=== PATIENT | male | born 1960 | race Caucasian/White ===

== ENCOUNTER 2024-06-03 11:03 | Inpatient (IN) | payer MEDICARE, SELFPAY ==
--- NOTE | ~2024-06-03 | XR_ITS ---
EXAMINATION: XR CHEST CLINICAL INFORMATION: cough COMPARISON: None available. TECHNIQUE: 2 views of the chest were obtained. FINDINGS: No significant abnormality is noted involving the heart, lungs, mediastinum, bony thorax or soft tissues. XR/XR chest 2V IMPRESSION: Unremarkable examination. Electronically signed by: Neo Fischer MD 06/03/2024 12:42 PM [facility]
[2024-06-03 11:09] VITALS: BP 180/110; PULSE 75; O2SAT 98
[2024-06-03 11:51] VITALS: BP 162/96; PULSE 71; RESP 20; TEMP 36.7; O2SAT 95; BMI 36.6
--- NOTE | 2024-06-03 11:52 | ED_ITS ---
HPI - General Adult General Chief complaint: General Medical Stated complaint: FEELS ILL,COUGHING SPUTUM,SOB 98% RA X5D PER EMS Time Seen by Provider: 06/03/24 13:42 Source: patient Mode of arrival: ambulatory Limitations: no limitations History of Present Illness ED Provider: LIAM MAXWELL PA-C HPI narrative: 63 year old male with pmhx significant for hypertension presents to the ED today for evaluation of cough productive of yellow sputum and body aches x4 days. He has been taking [id number] cough medicine without improvement. Denies any known history of lung disease/asthma. Remote history of tobacco use. No recent travel/ long car rides. He tells me that he currently resides with a disabled female who he is caring for. He becomes tearful and expresses anxiety surrounding his current living situation. He states that this individual does not respect his boundaries that he has clearly set within the home. He has been trying to care for himself while he has been ill over the last week and he has been unable to do so. He feels like he has no where to go. He endorses passive SI stating I do not want to live anymore . He does not have a specific plan on how he would do so. Denies HI. He has no history of anxiety or depression. He is requesting something for anxiety He also tells me that his hypertension has been uncontrolled over the past 8 months. He reports switching to a new insurance and has been unable to establish care with a primary care provider. The last time he took his blood pressure medication was approximately 8 months ago. He states that he was taking 12.5 mg of hydrochlorothiazide daily. Admits that his blood pressures have been through the roof recently which he attributes to his current situation. He denies any EtOH consumption or illicit substance use. Related Data Previous Rx's ?Medication ?Instructions ?Recorded azithromycin 250 mg tablet See Rx Instructions PO .COMPLEX #6 06/03/24 tabs guaifenesin 200 mg tablet 200 mg PO TID PRN cough #10 tabs 06/03/24 hydrochlorothiazide 12.5 mg tablet 12.5 mg PO DAILY 30 days #30 tabs 06/03/24 Allergies Allergy/AdvReac Type Severity Reaction Status Date / Time lisinopril Allergy Unknown Verified 06/03/24 11:53 Review of Systems 2 Review of Systems: Constitutional: No fever, chills, fatigue, night sweats, weight changes ENT/Mouth: No ear pain, hearing loss, nasal congestion, sinus pain, rhinorrhea, sore throat Eyes: No eye pain, swelling, redness, vision changes, discharge Cardio: No chest pain, palpitations, ANDRADE, orthopnea, peripheral edema Pulm: No SOB, cough, sputum, wheezing, dyspnea, hemoptysis, +cough GI: No nausea, vomiting, hematemesis, abdominal pain, diarrhea, constipation, hematochezia, melena : No irregular bleeding, dysuria, frequency, urgency, hesitancy, hematuria, flank pain, urinary flow changes, urinary incontinence or retention MSK: No back pain, neck pain, joint pain, +myalgias Skin: No lesions, rashes Neuro: No weakness, numbness, paresthesias, LOC, dizziness, headache Psych: No panic, depression, SI/HI, AH/VH, +anxiety, +SI All other systems reviewed and are negative. [facility] Past Medical History Attestation statement: The following information was validated with the patient. Source: old records reviewed and nursing notes reviewed Social History Social History Alcohol intake: current Alcohol type: hard liquor Smoked in Last 30 Days: No Use of substances other than those prescribed or required for medical reasons: No Advance Directives: No Advance Directives Information Provided: Yes Do you have a plan to hurt others: No Plan Physical Exam ED Vital Signs: Vital Signs - 24 hr 06/03/24 17:47 06/03/24 22:29 06/04/24 00:41 Temperature 97.1 F 97.8 F Pulse Rate 58 73 85 Respiratory Rate 16 16 Blood Pressure 161/92 H 176/103 H 166/106 H Pulse Oximetry 96 96 Oxygen Delivery Method Room Air Room Air 06/04/24 03:03 06/04/24 10:29 Temperature 97.7 F Pulse Rate 84 73 Respiratory Rate 16 Blood Pressure 159/86 H 154/88 H Pulse Oximetry 92 Oxygen Delivery Method Room Air BMI result Body Mass Index 36.6 hypertensive, vitals otherwise wnl General: tearful Skin: Warm, dry, intact. No rashes or lesions. Head: Normocephalic, atraumatic. EENT: Hearing is intact b/l. Conjunctiva clear. PERRLA. EOM intact. Moist mucous membranes.? Neck: Supple without LAD Cardiac: Chest wall symmetric. RRR Lungs: Normal respiratory effort without accessory muscle use. CTA bilaterally. No rales, rhonchi, or wheezes.? Abdomen: Soft, non-tender, non-distended Back: No midline spinous or paraspinal tenderness. No step off deformity. Ext: Upper and lower extremities atraumatic, without tenderness, deformity, swelling or erythema. Full ROM throughout. Neuro: AOx3. Normal speech. Ambulating with steady gait. Psych: Appropriate mood and affect. Responds appropriately to questions. Course Course Course Narrative: RME, this is a rapid medical exam performed by Ramone Cortés please refer to primary provider for complete H&P- 63-year-old male presents for evaluation of cough, congestion, body aches. Reevaluation(s) Reevaluation #1: Patient tested negative for COVID, flu, RSV, strep throat. His chest x-ray does not demonstrate pneumonia or effusion. Patient's symptoms are consistent with a bronchitis. I have plans to prescribe him azithromycin and an antitussive. Regarding his elevated blood pressures, patient tells me that he was previously treated with hydrochlorothiazide 12.5 mg. His blood work is essentially unremarkable. Elevated liver enzymes of unknown significance. He does not complain of any abdominal pain, nausea or vomiting. He does not have an JIMMY. Plan to send 30 day script for HCTZ. Patient expressing passive SI in regards to his current home situation. Ativan provided for anxiety. I have also placed a consultation to care team for further discussion. Patient agreeable. placed in physician observation pending care team consultation. Reevaluation #2: 06/04/24 8:45 Am we are waiting for crisis eval for anxiety and passive Si,stble clinically Reevaluation #3: observation ended pt will be admited to psyc Unit Time: 12:58 Medications Administered Generic Name Dose Route Start Last Admin Trade Name Freq PRN Reason Stop Dose Admin Benzonatate 200 mg 06/04/24 05:49 06/04/24 06:25 Benzonatate 100 Mg Capsule PO 200 mg TID PRN Administration cough or congestion Discontinued Medications Generic Name Dose Route Start Last Admin Trade Name Freq PRN Reason Stop Dose Admin Amlodipine Besylate 5 mg 06/03/24 22:55 12/30/24 23:25 Amlodipine Besylate 5 Mg Tablet PO 06/03/24 22:56 5 mg ONCE ONE Administration Protocol Amlodipine Besylate 5 mg 06/04/24 01:54 06/04/24 01:57 Amlodipine Besylate 5 Mg Tablet PO 06/04/24 01:55 5 mg ONCE ONE Administration Protocol Benzonatate 200 mg 06/03/24 14:34 06/03/24 14:59 Benzonatate 100 Mg Capsule PO 06/03/24 14:35 200 mg ONCE ONE Administration Guaifenesin 1,200 mg 06/04/24 00:28 06/04/24 00:41 Guaifenesin La 600 Mg Tab.Er.12h PO 06/04/24 00:29 1,200 mg ONCE ONE Administration Lorazepam 0.5 mg 06/03/24 14:34 06/03/24 14:59 Lorazepam 0.5 Mg Tablet PO 06/03/24 14:35 0.5 mg ONCE ONE Administration Medical Decision Making Medical Decision Making [facility] Narrative: 63 year old male with pmhx significant for hypertension presents to the ED today for evaluation of cough productive of yellow sputum and body aches x4 days. Hypertensive to 162/96, vitals otherwise wnl. He is not hypoxic or febrile. He is tearful on exam, in no acute distress. His physical exam is overall benign. Differential diagnosis includes viral syndrome, bronchitis, pneumonia Plan for viral swabs, CXR, re-evaluation. Differential Diagnosis Differential Diagnoses: The differential diagnosis associated with the presentation includes as above. Admission/Observation Consideration of admission/observation: Escalation of care including admission/observation considered Lab Data [facility] Lab Attestation statement: I reviewed the patient's lab results. as above. 06/03/24 14:32 06/03/24 14:32 Labs: Lab Results 06/03/24 06/03/24 06/04/24 Range/Units 12:32 14:32 01:30 WBC 9.1 (4.8-10.8) X10*3/uL RBC 4.66 (4.60-5.80) X10*6/uL Hgb 14.5 (14.0-18.0) g/dl Hct 39.9 L (42.0-52.0) % MCV 85.6 (80.0-98.0) fL MCH 31.1 (27.0-33.0) pg MCHC 36.3 H (31.0-36.0) g/dl RDW 11.9 (11.0-16.0) % Plt Count 166 (160-400) X10*3/uL MPV 10.6 (9.4-12.4) fL Immature Gran % (Auto) 0.3 (0.0-0.4) % Neut % (Auto) 59.9 (45-73) % Lymph % (Auto) 26.2 (20-40) % Bee % (Auto) 7.4 (2-11) % Eos % (Auto) 5.2 H (0-4) % Baso % (Auto) 1.0 (0-2) % Lymph # (Auto) 2.4 (1.2-4.9) X10*3/uL Bee # (Auto) 0.7 (0.1-1.2) X10*3/uL Eos # (Auto) 0.5 H (0.0-0.4) X10*3/uL Baso # (Auto) 0.1 (0.0-0.2) X10*3/uL Abs Immat Gran (auto) 0.03 (0.00-0.03) X10*3/uL Absolute Neuts (auto) 5.5 (2.0-8.3) x10*3/uL Absolute Nucleated RBC 0.000 (0.0-0.012) X10*3/uL Nucleated RBC % (auto) 0.0 (0.0-0.2) /100WBC Sodium 137 (135-145) mmol/L Potassium 4.4 (3.3-5.1) mmol/L Chloride 106 (96-108) mmol/L Carbon Dioxide 24 (22-29) mmol/L Anion Gap 11 L (12-20) BUN 10 (9-16) mg/dL Creatinine 1.08 (0.5-1.4) mg/dL Estim Creat Clear Calc 94.6 Estimated GFR > 60 Random Glucose 310 H (60-115) mg/dL Calcium 9.3 (8.4-10.2) mg/dL Total Bilirubin 1.2 H (0.0-1.0) mg/dL AST 41 H (5-37) U/L ALT 69 H (0-40) U/L Alkaline Phosphatase 94 (39-117) U/L Total Protein 7.1 (6.5-8.0) g/dL Albumin 3.9 (3.5-5.0) g/dL Urine Color Yellow Urine Appearance Clear Urine pH 5.5 (5.0-9.0) Ur Specific [place] >= 1.030 H (1.005-1.025) Urine Protein 30 (1+) H (Neg-Trace) mg/dL Urine Glucose (UA) >=1000 H (Negative) mg/dL Urine Ketones Negative (Negative) mg/dL Urine Blood Negative (Negative) Urine Nitrite Negative (Negative) Ur Leukocyte Esterase Negative (Negative) Urine RBC 0-2 (0-2) /HPF Urine WBC 0-5 (0-5) /HPF Ur Squamous Epith Cells 0-2 (0-2) /HPF Urine Bacteria None Seen (None Seen) Hyaline Casts 0-2 (0-2) /LPF Urine Opiates Screen Not Detected (Not Detect) Ur Buprenorphine Scrn Not Detected (Not Detect) ng/mL Ur Oxycodone Screen Not Detected (Not Detect) ng/mL Urine Methadone Screen Not Detected (Not Detect) ng/mL Urine Fentanyl Screen Not Detected (Not Detect) Ur Barbiturates Screen Not Detected (Not Detect) Ur Phencyclidine Scrn Not Detected (Not Detect) Ur Amphetamines Screen Not Detected (Not Detect) U Benzodiazepines Scrn Not Detected (Not Detect) Urine Cocaine Screen Not Detected (Not Detect) U Marijuana (THC) Screen Not Detected (Not Detect) Ethyl Alcohol < 10 mg/dL Influenza Type A (PCR) NEGATIVE (Negative) Influenza Type B (PCR) NEGATIVE (Negative) RSV RNA Qual (PCR) NEGATIVE (Negative) SARS-CoV-2 RNA (RT-PCR) NEGATIVE (Negative) S. pyogenes GrpA DAVID Negative (Negative) Independent Interpretation I performed an independent interpretation of an: Plain X-Ray Interpretation: CXR without infiltrate or consolidation Radiology Impression Discussion of test interpretation with radiology: I have reviewed the radiologist's reading. Radiologist Impression: EXAMINATION: XR CHEST CLINICAL INFORMATION: cough COMPARISON: None available. TECHNIQUE: 2 views of the chest were obtained. FINDINGS: No significant abnormality is noted involving the heart, lungs, mediastinum, bony thorax or soft tissues. XR/XR chest 2V IMPRESSION: Unremarkable examination. Electronically signed by: Neo Fischer MD 06/03/2024 12:42 PM EST Prescription Management I considered prescription management with: Antibiotic (azithromycin) and Other (HCTZ) Chronic Conditions Patient?s care impacted by: Hypertension Social Determinants Patient?s care significantly limited by Social Determinants of Health including: Other Social Determinant of Health Critical Care Time Critical Care Time Critical Care Time: No Discharge Plan Discharge Clinical Impression: Bronchitis, Anxiety, Hypertension Patient Disposition: Admitted As Inpatient
[2024-06-03 13:05] LABS: IDNOW Serial# 58CA691E; Strep A Nucleic Acid Negative (Negative)
[2024-06-03 13:37] LABS: Influenza A PCR NEGATIVE (Negative); Influenza B PCR NEGATIVE (Negative); Resp Syncy Virus RNA Qual PCR NEGATIVE (Negative); SARS COV2 PCR INHOUSE NEGATIVE (Negative)
[2024-06-03 14:36] LABS: MANUAL DIFF FLAG NO
[2024-06-03 14:42] LABS: Basophils Absolute Auto 0.1 X10*3/uL (0.0-0.2); Eosinophils Absolute Auto 0.5 X10*3/uL (0.0-0.4); Eosinophils Percent Auto 5.2 % (0-4); Hematocrit 39.9 % (42.0-52.0); Hemoglobin 14.5 g/dl (14.0-18.0); Imm Gran Abs Auto 0.03 X10*3/uL (0.00-0.03); Imm Gran Pct Auto 0.3 % (0.0-0.4); Lymphocytes Absolute Auto 2.4 X10*3/uL (1.2-4.9); Lymphocytes Percent Auto 26.2 % (20-40); Mean Corpuscular HGB Conc 36.3 g/dl (31.0-36.0); Mean Corpuscular Hemoglobin 31.1 pg (27.0-33.0); Mean Corpuscular Volume 85.6 fL (80.0-98.0); Mean Platelet Volume 10.6 fL (9.4-12.4); Monocytes Absolute Auto 0.7 X10*3/uL (0.1-1.2); Monocytes Percent Auto 7.4 % (2-11); Neutrophils Absolute Auto 5.5 x10*3/uL (2.0-8.3); Neutrophils Percent Auto 59.9 % (45-73); Platelet Count 166 X10*3/uL (160-400); Red Blood Count 4.66 X10*6/uL (4.60-5.80); Red Cell Distribution Width 11.9 % (11.0-16.0); White Blood Count 9.1 X10*3/uL (4.8-10.8)
[2024-06-03 14:51] LABS: Alanine Aminotransferase 69 U/L (0-40); Albumin Level 3.9 g/dL (3.5-5.0); Alkaline Phosphatase 94 U/L (39-117); Anion Gap 11 (12-20); Aspartate Amino Transferase 41 U/L (5-37); Bilirubin Total 1.2 mg/dL (0.0-1.0); Blood Urea Nitrogen 10 mg/dL (9-16); Calcium 9.3 mg/dL (8.4-10.2); Carbon Dioxide 24 mmol/L (22-29); Chloride 106 mmol/L (96-108); Creatinine Clr Calc Pharmacy 94.6; Estimated Glomerular Filt Rate > 60; Glucose Random 310 mg/dL (60-115); Potassium 4.4 mmol/L (3.3-5.1); Sodium 137 mmol/L (135-145); Total Protein 7.1 g/dL (6.5-8.0)
[2024-06-03] MEDS: Benzonatate 100 MG CAPSULE 200 MG PO (14:59)
[2024-06-03] MEDS: LORazepam 0.5 MG TABLET PO (14:59)
[2024-06-03 17:47] VITALS: BP 161/92; PULSE 58; RESP 16; TEMP 36.2; O2SAT 96
[2024-06-03 22:29] VITALS: BP 176/103; PULSE 73; RESP 16; TEMP 36.6; O2SAT 96
[2024-06-03] MEDS: amLODIPine Besylate 5 MG TABLET PO (23:25)
[2024-06-03 23:53] LABS: Ethanol < 10 mg/dL
[2024-06-04] VITALS (8 sets, daily range): BP systolic 154–189; BP diastolic 79–106; PULSE 73–85; RESP 16; TEMP 36.5–36.8; O2SAT 92–99; BMI 36.6
[2024-06-04] MEDS: guaiFENesin LA 600 MG TAB.ER.12H 1200 MG PO (00:41)
[2024-06-04 01:39] LABS: Appearance Urine Clear; Color Urine Yellow; Glucose Urine UA >=1000 mg/dL (Negative); Leukocyte Esterase Urine Negative (Negative); Nitrite Urine Negative (Negative); PH 5.5 (5.0-9.0); Specific Gravity - Urine >= 1.030 (1.005-1.025); UMIC TRIGGER UACC YES; Urine Blood Negative (Negative); Urine Ketones Negative (Negative); Urine Protein 30 (1+) mg/dL (Neg-Trace)
[2024-06-04 01:41] LABS: Bacteria Urine None Seen (None Seen); Hyaline Casts Urine 0-2 /LPF (0-2); RBC Urine 0-2 /HPF (0-2); Squamous Epithelial Cell Urine 0-2 /HPF (0-2); WBC Urine 0-5 /HPF (0-5)
[2024-06-04 01:55] LABS: Amphetamine Screen Urine Not Detected (Not Detect); Barbiturates, Urine Not Detected (Not Detect); Benzodiazepines Screen Urine Not Detected (Not Detect); Buprenorphine Scr Not Detected (Not Detect); Cannabinoid Screen Urine Not Detected (Not Detect); Cocaine Screen Urine Not Detected (Not Detect); Fentanyl, urine Not Detected (Not Detect); Methadone Screen, Urine Not Detected (Not Detect); Opiate Screen Urine Not Detected (Not Detect); Oxycodone Screen Urine Not Detected (Not Detect); Phencyclidine Screen Urine Not Detected (Not Detect)
[2024-06-04] MEDS: amLODIPine Besylate 5 MG TABLET PO (01:57)
[2024-06-04] MEDS: Benzonatate 100 MG CAPSULE 200 MG PO (06:25)
--- NOTE | 2024-06-04 11:45 | MHC.CARE ---
Pt will be a bedsearch
--- NOTE | 2024-06-04 14:02 | ECG_ITS ---
Test Reason : PROLONGED QTC Blood Pressure : / mmHG Vent. Rate : 071 BPM Atrial Rate : 071 BPM P-R Int : 188 ms QRS Dur : 104 ms QT Int : 402 ms P-R-T Axes : 063 -10 056 degrees QTc Int : 436 ms Normal sinus rhythm Minimal voltage criteria for LVH, may be normal variant ( R in aVL ) Borderline ECG No previous ECGs available Referred By: Birgit August Electronically Signed By:AMY ESPINAL MD
--- NOTE | 2024-06-04 14:37 | PHA.MEDREC ---
Addendum entered by [place]o [place] 06/04/24 14:43: reviewed Original Note: Pharmacy Consult ? Medication Reconciliation Pharmacy has completed the medication reconciliation. Spoke with patient and he confirmed he is not taking any medications at home currently.
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
--- NOTE | 2024-06-04 17:12 | PC.NURSE ---
Per ED Nurse, pharmacy is to come talk to patient on M5 for his med reconciliation.
--- NOTE | 2024-06-04 19:04 | PC.NURSE ---
Pt with 2 high BPs since his arrival on the unit. Dr Patton made aware via tigertext.
[2024-06-04] MEDS: hydrOXYzine HCL 25 MG TABLET PO (21:02)
[2024-06-04 21:40] LABS: Alanine Aminotransferase 63 U/L (0-40); Albumin Level 4.2 g/dL (3.5-5.0); Alkaline Phosphatase 97 U/L (39-117); Anion Gap 15 (12-20); Aspartate Amino Transferase 34 U/L (5-37); Bilirubin Total 0.9 mg/dL (0.0-1.0); Blood Urea Nitrogen 15 mg/dL (9-16); Calcium 9.4 mg/dL (8.4-10.2); Carbon Dioxide 23 mmol/L (22-29); Chloride 102 mmol/L (96-108); Creatinine Clr Calc Pharmacy 92.8; Estimated Glomerular Filt Rate > 60; Glucose Random 331 mg/dL (60-115); Potassium 4.4 mmol/L (3.3-5.1); Sodium 136 mmol/L (135-145); Total Protein 7.5 g/dL (6.5-8.0)
[2024-06-05] MEDS: guaiFENesin LA 600 MG TAB.ER.12H PO ×3 (00:57→21:04)
[2024-06-05 07:30] LABS: Estimated Average Glucose 246 mg/dL; Hemoglobin A1C 323.0056 umol/L; Hemoglobin A1c % 10.2 % (<6.0); Total Hemoglobin (HGBA1C) 3661.4293 umol/L
[2024-06-05 07:33] LABS: Cholesterol 194 mg/dL (<200); HDL Cholesterol 43 mg/dL (>40); LDL Cholesterol Calculated 126 mg/dL (<100); Triglycerides 128 mg/dL (<150)
[2024-06-05 07:56] VITALS: BP 156/98; PULSE 74; RESP 16; TEMP 36.4; O2SAT 96
[2024-06-05] MEDS: hydroCHLOROthiazide 12.5 MG TABLET PO ×2 (08:34→12:20)
[2024-06-05] MEDS: Benzonatate 100 MG CAPSULE 200 MG PO ×2 (09:05→21:04)
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
[2024-06-05] MEDS: Escitalopram Oxalate 5 MG TABLET PO (11:52)
[2024-06-05 12:20] VITALS: BP 148/72
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
[2024-06-05 14:41] VITALS: BP 132/76
[2024-06-05] MEDS: SITagliptin Phosphate 50 MG TABLET PO (14:41)
[2024-06-05] MEDS: Losartan Potassium 50 MG TABLET PO (14:41)
[2024-06-05 16:50] LABS: Glucose, Whole Blood 403 mg/dL (60-115)
--- NOTE | 2024-06-05 17:12 | PC.NURSE ---
contacted Alyce So NP and Mary DOMÍNGUEZ via tiger text for pt POC 403. pt has no insulin coverage. Mary said he will order. Awaiting orders.
[2024-06-05] MEDS: metFORMIN HCl 1,000 MG TABLET 1000 MG PO (17:37)
[2024-06-05] MEDS: Insulin Lispro 100 UNIT/ML 3 ML VIAL SUBCUT ×2 (17:44→21:44)
[2024-06-05 20:00] VITALS: BP 143/93; PULSE 85; RESP 16; TEMP 36.6; O2SAT 94
[2024-06-05 21:22] LABS: Glucose, Whole Blood 236 mg/dL (60-115)
[2024-06-06 07:46] LABS: Glucose, Whole Blood 264 mg/dL (60-115)
[2024-06-06 08:00] VITALS: BP 140/82; PULSE 65; RESP 16; TEMP 36.6; O2SAT 97
[2024-06-06] MEDS: Losartan Potassium 50 MG TABLET PO (08:41)
[2024-06-06] MEDS: SITagliptin Phosphate 50 MG TABLET PO (08:41)
[2024-06-06] MEDS: Insulin Lispro 100 UNIT/ML 3 ML VIAL SUBCUT ×4 (08:41→22:26)
[2024-06-06] MEDS: hydroCHLOROthiazide 25 MG TABLET PO (08:42)
[2024-06-06] MEDS: Escitalopram Oxalate 5 MG TABLET PO (08:42)
[2024-06-06] MEDS: metFORMIN HCl 1,000 MG TABLET 1000 MG PO ×2 (08:42→17:38)
[2024-06-06] MEDS: Acetaminophen 325 MG TABLET 650 MG PO (08:48)
[2024-06-06] MEDS: Benzonatate 100 MG CAPSULE 200 MG PO ×2 (08:49→22:25)
[2024-06-06] MEDS: guaiFENesin LA 600 MG TAB.ER.12H PO (08:49)
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
[2024-06-06 12:35] LABS: Glucose, Whole Blood 353 mg/dL (60-115)
[2024-06-06 13:03] VITALS: BP 140/84; PULSE 78; RESP 18; TEMP 36.9; O2SAT 95
[2024-06-06 16:54] LABS: Glucose, Whole Blood 175 mg/dL (60-115)
[2024-06-06 20:00] VITALS: BP 171/101; PULSE 70; RESP 16; TEMP 36.7; O2SAT 95
[2024-06-06 21:18] LABS: Glucose, Whole Blood 239 mg/dL (60-115)
[2024-06-06] MEDS: Magnesium Hydrox/Alum Hydrox 30 ML ORAL.SUSP PO (23:36)
[2024-06-07] MEDS: traZODone HCL 50 MG TABLET PO ×2 (02:06→20:48)
[2024-06-07] MEDS: hydrOXYzine HCL 25 MG TABLET PO ×2 (02:06→20:48)
[2024-06-07 08:00] VITALS: BP 113/66; PULSE 93; RESP 16; TEMP 36.9; O2SAT 95
[2024-06-07 08:28] LABS: Glucose, Whole Blood 228 mg/dL (60-115)
[2024-06-07] MEDS: SITagliptin Phosphate 50 MG TABLET PO (09:03)
[2024-06-07] MEDS: Insulin Lispro 100 UNIT/ML 3 ML VIAL SUBCUT ×4 (09:27→20:47)
[2024-06-07 09:28] VITALS: BP 113/66
[2024-06-07] MEDS: metFORMIN HCl 1,000 MG TABLET 1000 MG PO ×2 (09:28→17:35)
[2024-06-07] MEDS: Escitalopram Oxalate 5 MG TABLET PO (09:28)
[2024-06-07] MEDS: hydroCHLOROthiazide 25 MG TABLET PO (09:28)
[2024-06-07 09:29] VITALS: BP 113/66
[2024-06-07] MEDS: Losartan Potassium 50 MG TABLET PO (09:29)
[2024-06-07 12:25] LABS: Glucose, Whole Blood 297 mg/dL (60-115)
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
[2024-06-07 17:18] LABS: Glucose, Whole Blood 215 mg/dL (60-115)
[2024-06-07 20:00] VITALS: BP 122/79; PULSE 79; RESP 15; TEMP 36.6; O2SAT 96
[2024-06-07 20:11] LABS: Glucose, Whole Blood 183 mg/dL (60-115)
[2024-06-07] MEDS: Benzonatate 100 MG CAPSULE 200 MG PO (20:48)
[2024-06-07] MEDS: guaiFENesin LA 600 MG TAB.ER.12H PO (20:48)
[2024-06-08 08:00] VITALS: BP 123/75; PULSE 76; RESP 16; TEMP 36.4; O2SAT 96
[2024-06-08 08:03] LABS: Glucose, Whole Blood 222 mg/dL (60-115)
[2024-06-08] MEDS: Losartan Potassium 50 MG TABLET PO (08:51)
[2024-06-08] MEDS: guaiFENesin LA 600 MG TAB.ER.12H PO ×2 (08:51→20:30)
[2024-06-08] MEDS: SITagliptin Phosphate 50 MG TABLET PO (08:51)
[2024-06-08] MEDS: Escitalopram Oxalate 5 MG TABLET PO (08:51)
[2024-06-08] MEDS: Benzonatate 100 MG CAPSULE 200 MG PO ×2 (08:51→20:30)
[2024-06-08] MEDS: hydroCHLOROthiazide 25 MG TABLET PO (08:51)
[2024-06-08] MEDS: metFORMIN HCl 1,000 MG TABLET 1000 MG PO ×2 (08:51→17:43)
--- NOTE | 2024-06-08 08:52 | HO.PSYCHPN ---
Subjective Subjective Date of Service: 06/08/24 Reason For Visit: depression / SI Subjective Notes: Conditional Voluntary Healthcare Proxy: No Guardianship: No Medical Problems Affecting Mental Status: No Interim History: 63 yo slept better tolerated lexapro, looking for something for shoulder pain- no current si, getting plan together for getting out of trapped living/caretaking position he is in=- Medication Compliance: Yes Side effects from medications: No Attending Groups: No Review of Systems Acute medical concerns: Yes getting htn and diabetes treated Medical Review of Systems: changed (shoulder pain ,not new but troubling him in these beds) Mental Status Exam Mental Status Exam Patient Appearance: Unkempt Patient Orientation: Person, Place, Time and Situation Level of Consciousness: Awake Patient Behavior: Appropriate, Cooperative and Passive Mood Description: Calm Affect Description: Blunted Patient Cognition Impaired: No Ability to Follow Directions: Fair Speech Pattern: Clear Hallucinations: None Delusions: Not Present Thought Process: Intact Thought Content: positive for Intact and positive for Goal Oriented Judgement: Fair Diagnostics Vital Signs (24Hr): Vital Signs - 24 hr 06/07/24 09:28 06/07/24 09:29 06/07/24 20:00 Temperature 97.8 F Pulse Rate 79 Respiratory Rate 15 Blood Pressure 113/66 113/66 122/79 Pulse Oximetry 96 06/08/24 08:00 Temperature 97.5 F Pulse Rate 76 Respiratory Rate 16 Blood Pressure 123/75 Pulse Oximetry 96 BMI result Body Mass Index 36.6 Labs 06/03/24 14:32 06/04/24 21:08 Labs: Laboratory Results - last 48 hr 06/06/24 06/06/24 06/06/24 12:31 16:50 21:14 POC Glucose 353 H* 175 H 239 H 06/07/24 06/07/24 06/07/24 08:19 12:21 17:14 POC Glucose 228 H 297 H 215 H 06/07/24 06/08/24 20:06 07:55 POC Glucose 183 H 222 H Imaging Radiology Impressions: ITS Impressions Chest X-Ray 06/03/24 12:10 IMPRESSION: Unremarkable examination. Electronically signed by: Neo Fischer MD 06/03/2024 12:42 PM [facility] Medications Medications Current Medications Acetaminophen (Acetaminophen 325 Mg Tablet) 650 mg PO Q6H PRN PRN Reason: Headache/Pain Mild Scale (1-3) Last Admin: 06/06/24 08:48 Dose: 650 mg Al Hydroxide/Mg Hydroxide (Magnesium Hydrox/Alum Hydrox 30 Ml Oral.Susp) 30 ml PO Q6H PRN PRN Reason: Heartburn/Nausea Last Admin: 06/06/24 23:36 Dose: 30 ml Benzonatate (Benzonatate 100 Mg Capsule) 200 mg PO TID PRN PRN Reason: cough or congestion Last Admin: 06/07/24 20:48 Dose: 200 mg Clonidine HCl (Clonidine Hcl 0.1 Mg Tablet) 0.1 mg PO Q4H PRN; Protocol PRN Reason: anxiety/SBP>169 Escitalopram Oxalate (Escitalopram Oxalate 5 Mg Tablet) 5 mg PO DAILY [facility] Last Admin: 06/07/24 09:28 Dose: 5 mg Glucose (Glucose Gel 15 Gm Gel..Gram.) 15 gm PO Q15M PRN; Protocol PRN Reason: per Hypoglycemia Standing Ord. Guaifenesin (Guaifenesin La 600 Mg Tab.Er.12h) 600 mg PO BID PRN PRN Reason: Cough Last Admin: 06/07/24 20:48 Dose: 600 mg Hydrochlorothiazide (Hydrochlorothiazide 25 Mg Tablet) 25 mg PO DAILY [facility]; Protocol Last Admin: 06/07/24 09:28 Dose: 25 mg Hydroxyzine HCl (Hydroxyzine Hcl 25 Mg Tablet) 25 mg PO Q6H PRN PRN Reason: Anxiety Last Admin: 06/07/24 20:48 Dose: 25 mg Dextrose (D10) 250 mls @ 750 mls/hr IV Q15M PRN; Protocol PRN Reason: per Hypoglycemia Standing Ord. Insulin Human Lispro (Insulin Lispro 100 Unit/Ml 3 Ml Vial) 0 unit SUBCUT QIDACHS [facility]; Protocol Last Admin: 06/07/24 20:47 Dose: 2 unit Losartan Potassium (Losartan Potassium 50 Mg Tablet) 50 mg PO DAILY [facility]; Protocol Last Admin: 06/07/24 09:29 Dose: 50 mg Magnesium Hydroxide (Milk Of Magnesia 30 Ml Oral.Susp) 30 ml PO DAILY PRN PRN Reason: Constipation Metformin HCl (Metformin Hcl 1,000 Mg Tablet) 1,000 mg PO BIDWM [facility] Last Admin: 06/07/24 17:35 Dose: 1,000 mg Nicotine (Nicotine 21 Mg Patch.Td24) 21 mg TRANSDERMA DAILY PRN PRN Reason: smoking cessation Nicotine Polacrilex (Nicotine Polacrilex 2 Mg Gum) 4 mg BUCCAL Q2H PRN PRN Reason: Nicotine Cravings Olanzapine (Olanzapine 2.5 Mg Tablet) 2.5 mg PO TID PRN PRN Reason: agitation Sitagliptin Phosphate (Sitagliptin Phosphate 50 Mg Tablet) 50 mg PO DAILY [facility] Last Admin: 06/07/24 09:03 Dose: 50 mg Trazodone HCl (Trazodone Hcl 50 Mg Tablet) 50 mg PO BEDTIME MRX1 PRN PRN Reason: Insomnia Last Admin: 06/07/24 20:48 Dose: 50 mg Allergies Allergies Allergy/AdvReac Type Severity Reaction Status Date / Time lisinopril Allergy Unknown Verified 06/03/24 11:53 Assessment & Plan Assessment & Plan (1) Depression: Status: Acute Code(s): F32.A - Depression, unspecified Assessment and Plan: Trial of lexapro- Patient will need referral to outpatient care and help with planning his leaving from caregiver/home situation but that is likely longer term fix. (2) Diabetes mellitus: Status: Acute Code(s): E11.9 - Type 2 diabetes mellitus without complications Assessment and Plan: medical consult appreciated started on metformin and januvia (3) Hypertension: Status: Acute Code(s): I10 - Essential (primary) hypertension Assessment and Plan: restarted hctz Plan Admission for mileu/psychiatric and medical care- with plan to create suitable discharge plan to have patient be less risk med/psych decompensation. 06/06/2024 continue tx. 06/07 continue tx. 06/08/24 inc lexapro to 10mg, Patient educated on: medication risk/benefits Informed Consent: understands Reason for continued inpatient stay Substantial Risk for: rapid decompensation and med/psych decompensation Time Spent With Patient Time: Total time managing care of this patient today ____ minutes.
[2024-06-08] MEDS: Insulin Lispro 100 UNIT/ML 3 ML VIAL SUBCUT ×3 (08:53→17:41)
[2024-06-08] MEDS: Magnesium Hydrox/Alum Hydrox 30 ML ORAL.SUSP PO (10:55)
[2024-06-08 12:02] LABS: Glucose, Whole Blood 216 mg/dL (60-115)
[2024-06-08] MEDS: Lidocaine 4 % Patch ADH..PATCH 1 PATCH TRANSDERMA (13:03)
[2024-06-08 17:26] LABS: Glucose, Whole Blood 291 mg/dL (60-115)
[2024-06-08 20:00] VITALS: BP 122/64; PULSE 92; RESP 15; TEMP 37.2; O2SAT 96
[2024-06-08 20:08] LABS: Glucose, Whole Blood 142 mg/dL (60-115)
[2024-06-08] MEDS: traZODone HCL 50 MG TABLET PO (20:30)
[2024-06-08] MEDS: Acetaminophen 325 MG TABLET 650 MG PO (20:30)
[2024-06-09] MEDS: Magnesium Hydrox/Alum Hydrox 30 ML ORAL.SUSP PO ×2 (00:46→21:30)
[2024-06-09 08:00] VITALS: BP 131/94; PULSE 89; RESP 16; TEMP 36.4; O2SAT 95
[2024-06-09 08:20] LABS: Glucose, Whole Blood 220 mg/dL (60-115)
[2024-06-09 09:09] VITALS: BP 131/94
[2024-06-09] MEDS: SITagliptin Phosphate 50 MG TABLET PO (09:09)
[2024-06-09] MEDS: hydroCHLOROthiazide 25 MG TABLET PO (09:09)
[2024-06-09 09:10] VITALS: BP 131/94
[2024-06-09] MEDS: Losartan Potassium 50 MG TABLET PO (09:10)
[2024-06-09] MEDS: Escitalopram Oxalate 10 MG TABLET PO (09:10)
[2024-06-09] MEDS: metFORMIN HCl 1,000 MG TABLET 1000 MG PO ×2 (09:10→18:00)
[2024-06-09] MEDS: Ibuprofen 600 MG TABLET PO (09:13)
[2024-06-09] MEDS: guaiFENesin LA 600 MG TAB.ER.12H PO ×2 (09:14→21:31)
[2024-06-09] MEDS: Insulin Lispro 100 UNIT/ML 3 ML VIAL SUBCUT ×4 (09:15→21:24)
--- NOTE | 2024-06-09 10:17 | P.PNPSI_ITS ---
Subjective Subjective Date of Service: 06/09/24 Reason For Visit: depression / SI Subjective Notes: Conditional Voluntary Healthcare Proxy: No Guardianship: No Medical Problems Affecting Mental Status: Yes (nausea and diarrhea today didn't sleep last pm up 4:30 diarrhea) Interim History: 63 yo didn't sleep well due to diarrhea at 4:30 , now tired, nauseated though ate, tolerated 10mg lexapro-today- doesn't think inc lexapro related- Medication Compliance: Yes Side effects from medications: No Attending Groups: No Review of Systems Acute medical concerns: Yes nausea/diarrhe Review of Systems: lidocaine patch helped shoulder pain Mental Status Exam Mental Status Exam Patient Appearance: Disheveled and Unkempt Patient Orientation: Person, Place, Time and Situation Level of Consciousness: Awake Patient Behavior: Appropriate, Cooperative, Passive and Isolative Mood Description: Calm Affect Description: Flat Patient Cognition Impaired: No Ability to Follow Directions: Fair Speech Pattern: Clear Hallucinations: None Delusions: Not Present Thought Process: Intact and Goal Oriented Thought Content: positive for Intact Judgement: Fair Diagnostics Vital Signs (24Hr): Vital Signs - 24 hr 06/08/24 20:00 06/09/24 09:09 06/09/24 09:10 Temperature 98.9 F Pulse Rate 92 Respiratory Rate 15 Blood Pressure 122/64 131/94 H 131/94 H Pulse Oximetry 96 BMI result Body Mass Index 36.6 Labs 06/03/24 14:32 06/04/24 21:08 Labs: Laboratory Results - last 48 hr 06/07/24 06/07/24 06/07/24 12:21 17:14 20:06 POC Glucose 297 H 215 H 183 H 06/08/24 06/08/24 06/08/24 07:55 11:55 17:20 POC Glucose 222 H 216 H 291 H 06/08/24 06/09/24 20:03 08:11 POC Glucose 142 H 220 H Imaging Radiology Impressions: ITS Impressions Chest X-Ray 06/03/24 12:10 IMPRESSION: Unremarkable examination. Electronically signed by: Neo Fischer MD 06/03/2024 12:42 PM [facility] Medications Medications Current Medications Acetaminophen (Acetaminophen 325 Mg Tablet) 650 mg PO Q6H PRN PRN Reason: Headache/Pain Mild Scale (1-3) Last Admin: 06/08/24 20:30 Dose: 650 mg Al Hydroxide/Mg Hydroxide (Magnesium Hydrox/Alum Hydrox 30 Ml Oral.Susp) 30 ml PO Q6H PRN PRN Reason: Heartburn/Nausea Last Admin: 06/09/24 00:46 Dose: 30 ml Benzonatate (Benzonatate 100 Mg Capsule) 200 mg PO TID PRN PRN Reason: cough or congestion Last Admin: 06/08/24 20:30 Dose: 200 mg Clonidine HCl (Clonidine Hcl 0.1 Mg Tablet) 0.1 mg PO Q4H PRN; Protocol PRN Reason: anxiety/SBP>169 Escitalopram Oxalate (Escitalopram Oxalate 10 Mg Tablet) 10 mg PO DAILY [facility] Last Admin: 06/09/24 09:23 Dose: Not Given Glucose (Glucose Gel 15 Gm Gel..Gram.) 15 gm PO Q15M PRN; Protocol PRN Reason: per Hypoglycemia Standing Ord. Guaifenesin (Guaifenesin La 600 Mg Tab.Er.12h) 600 mg PO BID PRN PRN Reason: Cough Last Admin: 06/09/24 09:14 Dose: 600 mg Hydrochlorothiazide (Hydrochlorothiazide 25 Mg Tablet) 25 mg PO DAILY [facility]; Protocol Last Admin: 06/09/24 09:09 Dose: 25 mg Hydroxyzine HCl (Hydroxyzine Hcl 25 Mg Tablet) 25 mg PO Q6H PRN PRN Reason: Anxiety Last Admin: 06/07/24 20:48 Dose: 25 mg Dextrose (D10) 250 mls @ 750 mls/hr IV Q15M PRN; Protocol PRN Reason: per Hypoglycemia Standing Ord. Ibuprofen (Ibuprofen 600 Mg Tablet) 600 mg PO Q6H PRN PRN Reason: Pain, Moderate(Pain Scale 4-6) Last Admin: 06/09/24 09:13 Dose: 600 mg Insulin Human Lispro (Insulin Lispro 100 Unit/Ml 3 Ml Vial) 0 unit SUBCUT QIDACHS [facility]; Protocol Last Admin: 06/09/24 09:15 Dose: 4 unit Lidocaine (Lidocaine 4 % Patch Adh..Patch) 1 patch TRANSDERMA DAILY [facility]; Protocol Last Admin: 06/08/24 13:03 Dose: 1 patch Losartan Potassium (Losartan Potassium 50 Mg Tablet) 50 mg PO DAILY [facility]; Protocol Last Admin: 06/09/24 09:10 Dose: 50 mg Magnesium Hydroxide (Milk Of Magnesia 30 Ml Oral.Susp) 30 ml PO DAILY PRN PRN Reason: Constipation Metformin HCl (Metformin Hcl 1,000 Mg Tablet) 1,000 mg PO BIDWM [facility] Last Admin: 06/09/24 09:10 Dose: 1,000 mg Nicotine (Nicotine 21 Mg Patch.Td24) 21 mg TRANSDERMA DAILY PRN PRN Reason: smoking cessation Nicotine Polacrilex (Nicotine Polacrilex 2 Mg Gum) 4 mg BUCCAL Q2H PRN PRN Reason: Nicotine Cravings Olanzapine (Olanzapine 2.5 Mg Tablet) 2.5 mg PO TID PRN PRN Reason: agitation Sitagliptin Phosphate (Sitagliptin Phosphate 50 Mg Tablet) 50 mg PO DAILY [facility] Last Admin: 06/09/24 09:09 Dose: 50 mg Trazodone HCl (Trazodone Hcl 50 Mg Tablet) 50 mg PO BEDTIME MRX1 PRN PRN Reason: Insomnia Last Admin: 06/08/24 20:30 Dose: 50 mg Allergies Allergies Allergy/AdvReac Type Severity Reaction Status Date / Time lisinopril Allergy Unknown Verified 06/03/24 11:53 Assessment & Plan Assessment & Plan (1) Depression: Status: Acute Code(s): F32.A - Depression, unspecified Assessment and Plan: Trial of lexapro- Patient will need referral to outpatient care and help with planning his leaving from caregiver/home situation but that is likely longer term fix. (2) Diabetes mellitus: Status: Acute Code(s): E11.9 - Type 2 diabetes mellitus without complications Assessment and Plan: medical consult appreciated started on metformin and januvia (3) Hypertension: Status: Acute Code(s): I10 - Essential (primary) hypertension Assessment and Plan: restarted hctz Plan Admission for mileu/psychiatric and medical care- with plan to create suitable discharge plan to have patient be less risk med/psych decompensation. 06/06/2024 continue tx. 06/07 continue tx. 06/08 inc lexapro 06/09/24 co nausea/diarrhea- didn't sleep well due to that- CTP- zofran written for- discussed php ?option though not clear making use of mileu/groups here Patient educated on: medication risk/benefits, medical condition and other Informed Consent: understands and further education needed Reason for continued inpatient stay Substantial Risk for: rapid decompensation Time Spent With Patient Time: Total time managing care of this patient today ____ minutes.
[2024-06-09 12:11] LABS: Glucose, Whole Blood 266 mg/dL (60-115)
[2024-06-09] MEDS: Lidocaine 4 % Patch ADH..PATCH 1 PATCH TRANSDERMA (12:36)
[2024-06-09] MEDS: Ondansetron ODT 4 MG TAB.RAPDIS TRANSLINGU (15:19)
[2024-06-09 17:29] LABS: Glucose, Whole Blood 225 mg/dL (60-115)
[2024-06-09 19:50] VITALS: BP 127/60; PULSE 76; RESP 16; TEMP 36.6; O2SAT 95
[2024-06-09 20:33] LABS: Glucose, Whole Blood 237 mg/dL (60-115)
[2024-06-09] MEDS: Acetaminophen 325 MG TABLET 650 MG PO (21:25)
[2024-06-09] MEDS: traZODone HCL 50 MG TABLET PO (21:25)
[2024-06-10 08:00] VITALS: BP 112/65; PULSE 90; RESP 15; TEMP 36.5; O2SAT 94
[2024-06-10 08:06] LABS: Glucose, Whole Blood 186 mg/dL (60-115)
[2024-06-10] MEDS: Insulin Lispro 100 UNIT/ML 3 ML VIAL SUBCUT ×4 (08:43→21:49)
[2024-06-10 08:45] VITALS: BP 112/65
[2024-06-10] MEDS: hydroCHLOROthiazide 25 MG TABLET PO (08:45)
[2024-06-10] MEDS: SITagliptin Phosphate 50 MG TABLET PO (08:45)
[2024-06-10] MEDS: Losartan Potassium 50 MG TABLET PO (08:45)
[2024-06-10] MEDS: Escitalopram Oxalate 10 MG TABLET PO (08:45)
[2024-06-10] MEDS: metFORMIN HCl 1,000 MG TABLET 1000 MG PO ×2 (08:45→17:28)
[2024-06-10] MEDS: Lidocaine 4 % Patch ADH..PATCH 1 PATCH TRANSDERMA (09:35)
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
[2024-06-10 11:48] LABS: Glucose, Whole Blood 223 mg/dL (60-115)
[2024-06-10] MEDS: Famotidine 20 MG TABLET PO (12:37)
[2024-06-10 17:00] LABS: Glucose, Whole Blood 240 mg/dL (60-115)
[2024-06-10 20:00] VITALS: BP 132/76; PULSE 67; RESP 16; TEMP 36.7; O2SAT 95
[2024-06-10 21:44] LABS: Glucose, Whole Blood 229 mg/dL (60-115)
[2024-06-10] MEDS: Ibuprofen 600 MG TABLET PO (21:53)
[2024-06-11] MEDS: Magnesium Hydrox/Alum Hydrox 30 ML ORAL.SUSP PO (05:58)
[2024-06-11 08:00] VITALS: BP 125/73; PULSE 58; RESP 18; TEMP 36.2; O2SAT 96
[2024-06-11 08:40] LABS: Glucose, Whole Blood 180 mg/dL (60-115)
[2024-06-11 09:09] VITALS: BP 125/73
[2024-06-11] MEDS: Losartan Potassium 50 MG TABLET PO (09:09)
[2024-06-11] MEDS: metFORMIN HCl 1,000 MG TABLET 1000 MG PO (09:09)
[2024-06-11] MEDS: hydroCHLOROthiazide 25 MG TABLET PO (09:09)
[2024-06-11] MEDS: SITagliptin Phosphate 50 MG TABLET PO (09:09)
[2024-06-11] MEDS: Famotidine 20 MG TABLET PO (09:10)
[2024-06-11] MEDS: Escitalopram Oxalate 10 MG TABLET PO (09:10)
[2024-06-11] MEDS: Insulin Lispro 100 UNIT/ML 3 ML VIAL SUBCUT (09:10)
[2024-06-11 09:45] LABS: Creatinine Clr Calc Pharmacy 73.5; Estimated Glomerular Filt Rate 52
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
== END 2024-06-11 11:33 | disposition home or self-care (01) | DRG 885 ==
LOC: HO.ED 22:53 → HO.PM5 06-04 12:54
PROVIDERS: Internal Medicine; Physician Assistant; Physician Assistant Medical; Admitting Provider Psychiatry & Neurology Psychiatry; Emergency Provider Emergency Medicine; Visit Provider Social Worker
DX: F33.1 Major depressive disorder, recurrent, moderate (principal); R45.851 Suicidal ideations; E11.9 Type 2 diabetes mellitus without complications; I10 Essential (primary) hypertension; Z20.822 Contact with and (suspected) exposure to COVID-19; Z59.86 Financial insecurity; Z87.891 Personal history of nicotine dependence; Z79.84 Long term (current) use of oral hypoglycemic drugs; Z79.899 Other long term (current) drug therapy
CPT/HCPCS: 0241U; 36415; 71046; 80053; 80061; 80307; 81001; 82565; 82947; 83036; 85025; 87651; 93005; 99285

== ENCOUNTER → 2024-06-03 12:10 | Outpatient (BNV) | payer SELFPAY | PROVIDERS: Visit Provider Radiology Diagnostic Radiology | DX: R05.9 Cough, unspecified (principal) | CPT/HCPCS: 71046 ==

== ENCOUNTER 2024-06-04 12:49 | Outpatient (BNV) | payer MEDICARE, SELFPAY | END 2024-06-04 14:02 | PROVIDERS: Admitting Provider Psychiatry & Neurology Psychiatry; Emergency Provider Emergency Medicine; Visit Provider Internal Medicine Cardiovascular Disease | DX: R94.31 Abnormal electrocardiogram [ECG] [EKG] (principal); I10 Essential (primary) hypertension | CPT/HCPCS: 93010 ==

== ENCOUNTER → 2024-06-04 12:49 | Outpatient (BNV) | payer MEDICARE, SELFPAY | PROVIDERS: Admitting Provider Psychiatry & Neurology Psychiatry; Emergency Provider Emergency Medicine; Visit Provider Social Worker | DX: F32.2 Major depressive disorder, single episode, severe without psychotic features (principal); E11.9 Type 2 diabetes mellitus without complications; I10 Essential (primary) hypertension | CPT/HCPCS: 99231 ==

== ENCOUNTER → 2024-06-04 12:49 | Outpatient (BNV) | payer MEDICARE, SELFPAY | PROVIDERS: Admitting Provider Psychiatry & Neurology Psychiatry; Emergency Provider Emergency Medicine; Visit Provider Internal Medicine | DX: Z02.2 Encounter for examination for admission to residential institution (principal) | CPT/HCPCS: 99429 ==